=== PATIENT | female | born 1990 | race African-American/Black ===

== ENCOUNTER 2022-02-14 10:35 | Emergency (ER) | payer OTHER ==
[2022-02-14 11:37] VITALS: BP 106/73; PULSE 101; BMI 42.5
[2022-02-14] MEDS ORDERED: ACETAMINOPHEN 1000 MG/100 ML BAG IVPB ONE (12:27)
[2022-02-14] MEDS ORDERED: FAMOTIDINE 20 MG/50 ML IVPB 20 MG/50 ML MG IVPB ONE (12:27)
[2022-02-14 13:34] LABS: BASO % 0.8 % (0-2.0); EOS % 2.6 % (0-4.5); HEMATOCRIT 39.2 % (32.4-45.2); LYMPH % 25.7 % (8-40); MCHC 33.1 g/dl (32.0-36.0); MEAN CELL VOLUME 78.6 fl (80-96); MEAN PLT VOLUME 8.3 fl (7.5-11.1); MONO % 5.1 % (3.8-10.2); NEUT % 65.8 % (42.8-82.8); PLATELET COUNT 279 10^3/uL (134-434); RBC 4.98 M/mm3 (3.60-5.2); RDW 14.1 % (11.6-15.6); WHITE BLOOD COUNT 11.9 K/mm3 (4.0-10.0)
[2022-02-14 13:38] LABS: EPI CELLS 28 /uL (0-25.1); HYALINE CASTS 1 /uL (0-3.1); PH,URINE 5.5 (5.0-8.0); URINE APPEARANCE CLOUDY; URINE BACTERIA 1215 /uL (0-1359); URINE BILIRUBIN NEGATIVE (NEGATIVE); URINE COLOR YELLOW; URINE GLUCOSE (UA) NEGATIVE (NEGATIVE); URINE KETONE NEGATIVE (NEGATIVE); URINE LEUK ESTERASE 2+ (NEGATIVE); URINE NITRITE NEGATIVE (NEGATIVE); URINE PROTEIN NEGATIVE (NEGATIVE); URINE RBC 11 /uL (0-23.9); URINE WBC 119 /uL (0-25.8)
[2022-02-14 13:39] LABS: HCG,QUALITATIVE URINE Negative
[2022-02-14 13:48] LABS: INR 1.04 (0.83-1.09)
[2022-02-14 13:50] LABS: ACTIVATED PTT 30.5 SECONDS (25.2-36.5)
[2022-02-14] MEDS ORDERED: CEFTRIAXONE 1,000 MG in DEXTROSE 5%-WATER - 50 ML IVPB ONE (14:01)
[2022-02-14] MEDS ORDERED: CEFTRIAXONE 1 GM/50 ML BAG ONE (14:20)
[2022-02-14 14:43] LABS: ALBUMIN 3.5 g/dl (3.4-5.0); CALCIUM 9.2 mg/dL (8.5-10.1)
[2022-02-14 14:44] LABS: BLOOD UREA NITROGEN 9.8 mg/dL (7-18); MAGNESIUM 2.2 mg/dL (1.8-2.4)
[2022-02-14 14:48] LABS: BILIRUBIN,TOTAL 0.3 mg/dL (0.2-1); TOT PROT 8.2 g/dl (6.4-8.2)
== END 2022-02-14 17:37 | disposition home or self-care (01) ==
LOC: JER 10:35
PROC: 3E0333Z Introduction of Anti-inflammatory into Peripheral Vein, Percutaneous Approach (ICD-10-PCS; principal; 2022-02-14)
PROC: 3E03329 Introduction of Other Anti-infective into Peripheral Vein, Percutaneous Approach (ICD-10-PCS; 2022-02-14)
PROC: 3E033GC Introduction of Other Therapeutic Substance into Peripheral Vein, Percutaneous Approach (ICD-10-PCS; 2022-02-14)
DX: R10.13 Epigastric pain (principal); N39.0 Urinary tract infection, site not specified
CPT/HCPCS: 36415; 74177-TC; 76705-TC; 80053; 81003; 83690; 83735; 84703; 85025; 85610; 85730; 86850; 86900; 86901; 87086; 93005; 93010; 99285-25; Q9967

== ENCOUNTER 2023-10-11 16:46 | Observation (INO) | payer OTHER ==
[2023-10-11] MEDS ORDERED: ACETAMINOPHEN 1000 MG/100 ML BAG IVPB ONE (18:56)
[2023-10-11] MEDS ORDERED: SODIUM CHLORIDE 0.9% 500 ML INFUS.BAG IV ONE (18:56)
[2023-10-11] MEDS ORDERED: ONDANSETRON 4 MG/2 ML VIAL IVPUSH ONE (18:57)
[2023-10-11] MEDS ORDERED: ACETAMINOPHEN INJECTION 100 ML IVPB ONE (19:13)
[2023-10-11] MEDS ORDERED: ONDANSETRON 4 MG/2 ML VIAL ONE (19:13)
[2023-10-11 20:03] LABS: BASO % 0.8 % (0-2.0); EOS % 1.3 % (0-4.5); HEMATOCRIT 40.5 % (32.4-45.2); HEMOGLOBIN 13.3 GM/dL (10.7-15.3); LYMPH % 26.2 % (8-40); MCH 27.5 pg (25.7-33.7); MCHC 32.8 g/dl (32.0-36.0); MEAN CELL VOLUME 83.8 fl (80-96); MONO % 5.6 % (3.8-10.2); NEUT % 66.1 % (42.8-82.8); RBC 4.83 M/mm3 (3.60-5.2); RDW 13.8 % (11.6-15.6); WHITE BLOOD COUNT 12.7 K/mm3 (4.0-10.0)
[2023-10-11 20:06] LABS: EPI CELLS 12 /uL (0-25.1); HYALINE CASTS 0 /uL (0-3.1); URINE APPEARANCE CLEAR; URINE BACTERIA 240 /uL (0-1359); URINE BILIRUBIN NEGATIVE (NEGATIVE); URINE COLOR YELLOW; URINE GLUCOSE (UA) NEGATIVE (NEGATIVE); URINE KETONE NEGATIVE (NEGATIVE); URINE LEUK ESTERASE NEGATIVE (NEGATIVE); URINE NITRITE NEGATIVE (NEGATIVE); URINE PROTEIN NEGATIVE (NEGATIVE); URINE RBC 7 /uL (0-23.9); URINE WBC 5 /uL (0-25.8)
[2023-10-11 20:20] LABS: POTASSIUM 4.3 mmol/L (3.5-5.1)
[2023-10-11 20:22] LABS: CALCIUM 8.8 mg/dL (8.5-10.1); MEAN PLT VOLUME 8.8 fl (7.5-11.1); PLATELET COUNT 301 10^3/uL (134-434)
[2023-10-11 20:23] LABS: ALBUMIN 3.6 g/dl (3.4-5.0); BLOOD UREA NITROGEN 9.7 mg/dL (7-18)
[2023-10-11 20:26] LABS: CREATININE 0.7 mg/dL (0.55-1.3)
[2023-10-11 20:27] LABS: TOT PROT 8.1 g/dl (6.4-8.2)
[2023-10-11 20:28] LABS: BILIRUBIN,TOTAL 0.3 mg/dL (0.2-1)
[2023-10-11] MEDS ORDERED: morphine CARPU-JECT 4 MG/1 ML DISP.SYRIN IVPUSH ONE (20:52)
[2023-10-11] MEDS ORDERED: morphine SULFATE 4 MG/ML VIAL ONE (21:10)
[2023-10-11] MEDS ORDERED: HYDROmorphone HCl 2 MG/ML VIAL ONE (22:30)
[2023-10-11] MEDS ORDERED: HYDROmorphone HCl 2 MG/ML VIAL IVPUSH ONE (22:30)
[2023-10-12] MEDS ORDERED: SODIUM CHLORIDE 0.9% 500 ML INFUS.BAG IV ONE (01:12)
[2023-10-12] MEDS ORDERED: HYDROmorphone HCl 2 MG/ML VIAL IVPUSH ONE (02:01)
[2023-10-12] MEDS ORDERED: ACETAMINOPHEN INJECTION 100 ML IVPB ONE (02:38)
[2023-10-12] MEDS ORDERED: ACETAMINOPHEN 1000 MG/100 ML BAG IVPB ONE (02:47)
[2023-10-12] MEDS ORDERED: ONDANSETRON 4 MG/2 ML VIAL IVPUSH PRN (03:43)
[2023-10-12] MEDS ORDERED: PANTOPRAZOLE SODIUM 40 MG VIAL IVPUSH ONE (03:44)
[2023-10-12] MEDS ORDERED: ACETAMINOPHEN 1000 MG/100 ML BAG IVPB PRN (05:24)
[2023-10-12 06:28] VITALS: BMI 25.9
[2023-10-12 06:30] LABS: HEMOGLOBIN 12.8 GM/dL (10.7-15.3); MCH 28.1 pg (25.7-33.7); MEAN CELL VOLUME 85.2 fl (80-96); MEAN PLT VOLUME 8.5 fl (7.5-11.1); PLATELET COUNT 290 10^3/uL (134-434); RBC 4.57 M/mm3 (3.60-5.2); RDW 13.8 % (11.6-15.6); WHITE BLOOD COUNT 9.1 K/mm3 (4.0-10.0)
[2023-10-12] MEDS ORDERED: FLU VACCINE (FLULAVAL) PF 60 MCG/0.5 ML SYRINGE 2023-2024 IM ONE (06:36)
[2023-10-12 06:37] LABS: POTASSIUM 3.9 mmol/L (3.5-5.1)
[2023-10-12 06:40] LABS: CALCIUM 8.7 mg/dL (8.5-10.1)
[2023-10-12 06:41] LABS: ALBUMIN 3.5 g/dl (3.4-5.0); BLOOD UREA NITROGEN 6.4 mg/dL (7-18)
[2023-10-12 06:44] LABS: CREATININE 0.6 mg/dL (0.55-1.3)
[2023-10-12 06:45] LABS: BILIRUBIN,TOTAL 0.6 mg/dL (0.2-1); TOT PROT 7.3 g/dl (6.4-8.2)
[2023-10-12] MEDS: SODIUM CHLORIDE 1,000 ML IV SCH (07:31)
[2023-10-12] MEDS: PIPERACILLIN/TAZOB 3.375 GM 3.375 GM in DEXTROSE 5%-WATER - 50 ML IVPB SCH ×5 (07:31→17:26)
[2023-10-12] MEDS: ENOXAPARIN NA (PORCINE) 40 MG/0.4 ML DISP.SYRIN SQ SCH (11:23)
[2023-10-12] MEDS ORDERED: METOCLOPRAMIDE HCL INJECTION 10 MG/2 ML VIAL IVPUSH PRN (13:23)
[2023-10-12] MEDS ORDERED: PANTOPRAZOLE 20 MG TABLET PO SCH (17:00)
[2023-10-12] MEDS: SUCRALFATE 1 GM/10 ML UNIT DOSE CUPS PO SCH ×3 (17:25→21:32)
[2023-10-12] MEDS ORDERED: SUCRALFATE 1 GM TABLET (FP) PO SCH (22:00)
[2023-10-13] MEDS: PIPERACILLIN/TAZOB 3.375 GM 3.375 GM in DEXTROSE 5%-WATER - 50 ML IVPB SCH ×4 (02:26→18:00)
[2023-10-13] MEDS: SODIUM CHLORIDE 1,000 ML IV SCH ×2 (05:02→19:00)
[2023-10-13] MEDS ORDERED: ACETAMINOPHEN 1000 MG/100 ML BAG IVPB ONE ×2 (10:00→19:06)
[2023-10-13] MEDS: ENOXAPARIN NA (PORCINE) 40 MG/0.4 ML DISP.SYRIN SQ SCH (10:08)
[2023-10-13] MEDS: SUCRALFATE 1 GM/10 ML UNIT DOSE CUPS PO SCH ×4 (10:09→22:25)
[2023-10-13] MEDS: PANTOPRAZOLE SODIUM 40 MG VIAL IVPUSH SCH (10:09)
[2023-10-13] MEDS ORDERED: SODIUM CHLORIDE 0.9% 500 ML INFUS.BAG IV ONE (12:12)
[2023-10-13 17:55] LABS: COCAINE, UR NEGATIVE (NEGATIVE); METHADONE, UR NEGATIVE (NEGATIVE); OPIATES, URI NEGATIVE (NEGATIVE); PHENCYCLIDINE,URINE NEGATIVE (NEGATIVE); URINE BARBITURATES NEGATIVE (NEGATIVE); URINE BENZODIAZEPINES NEGATIVE (NEGATIVE)
[2023-10-13 18:09] LABS: URINE AMPHETAMINES NEGATIVE (NEGATIVE)
[2023-10-13] MEDS: KETOROLAC TROMETHAMINE 30 MG/1 ML VIAL IVPUSH PRN (23:15)
[2023-10-14] MEDS: SODIUM CHLORIDE 1,000 ML IV SCH (06:19)
[2023-10-14] MEDS: KETOROLAC TROMETHAMINE 30 MG/1 ML VIAL IVPUSH PRN (06:20)
[2023-10-14 09:13] LABS: BASO % 0.9 % (0-2.0); EOS % 3.4 % (0-4.5); HEMOGLOBIN 12.5 GM/dL (10.7-15.3); LYMPH % 30.7 % (8-40); MCH 27.8 pg (25.7-33.7); MCHC 32.9 g/dl (32.0-36.0); MEAN CELL VOLUME 84.4 fl (80-96); MEAN PLT VOLUME 8.3 fl (7.5-11.1); MONO % 6.9 % (3.8-10.2); NEUT % 58.1 % (42.8-82.8); PLATELET COUNT 261 10^3/uL (134-434); RDW 13.4 % (11.6-15.6); WHITE BLOOD COUNT 6.5 K/mm3 (4.0-10.0)
[2023-10-14 09:43] LABS: POTASSIUM 3.4 mmol/L (3.5-5.1)
[2023-10-14 09:53] LABS: CALCIUM 8.7 mg/dL (8.5-10.1)
[2023-10-14] MEDS: ENOXAPARIN NA (PORCINE) 40 MG/0.4 ML DISP.SYRIN SQ SCH (09:54)
[2023-10-14] MEDS: SUCRALFATE 1 GM/10 ML UNIT DOSE CUPS PO SCH ×3 (09:54→16:26)
[2023-10-14] MEDS: PANTOPRAZOLE SODIUM 40 MG VIAL IVPUSH SCH (09:54)
[2023-10-14 09:55] LABS: ALBUMIN 3.2 g/dl (3.4-5.0); BLOOD UREA NITROGEN 7.2 mg/dL (7-18)
[2023-10-14 09:58] LABS: CREATININE 0.7 mg/dL (0.55-1.3); PHOSPHOROUS 3.4 mg/dL (2.5-4.9)
[2023-10-14 09:59] LABS: BILIRUBIN,TOTAL 0.4 mg/dL (0.2-1); TOT PROT 6.9 g/dl (6.4-8.2)
[2023-10-14 14:46] VITALS: BP 103/68; PULSE 88; RESP 18; TEMP 98.4
== END 2023-10-14 17:22 | disposition left against medical advice (07) ==
LOC: JER 16:46 → UNDOADMOB 10-12 02:15 → JERBED 10-12 02:15 → INTOOBSV 10-12 04:47 → OBSVTOIN 10-12 04:47 → JERBED 10-12 05:58 → J5S 10-12 05:58 → JERBED 10-12 13:25 → J5S 10-12 13:25
PROVIDERS: ADMIT Internal Medicine
PROC: 0DBA8ZX Excision of Jejunum, Via Natural or Artificial Opening Endoscopic, Diagnostic (ICD-10-PCS; principal; 2023-10-12)
PROC: 0DB48ZX Excision of Esophagogastric Junction, Via Natural or Artificial Opening Endoscopic, Diagnostic (ICD-10-PCS; 2023-10-12)
DX: R10.13 Epigastric pain (principal); K44.9 Diaphragmatic hernia without obstruction or gangrene; E78.5 Hyperlipidemia, unspecified; K80.50 Calculus of bile duct without cholangitis or cholecystitis without obstruction; Z98.84 Bariatric surgery status; N83.202 Unspecified ovarian cyst, left side; M06.9 Rheumatoid arthritis, unspecified; F12.90 Cannabis use, unspecified, uncomplicated; E66.9 Obesity, unspecified
CPT/HCPCS: 36415; 74177-TC; 76705-TC; 78226-TC; 80053; 80307; 81003; 83690; 83735; 84100; 84703; 85025; 85027; 87040; 87086; 88305-TC; 88341-TC; 93005; 93010; 99285-25; A9537; G0378